=== PATIENT | female | born 1950 | race Caucasian/White ===

== ENCOUNTER 2022-01-27 09:59 | Observation (INO) ==
[2022-01-27 10:33] LABS: Basophils % 0.3 %; Eosinophils # 0.1 K/mcL (0.0-0.6); Eosinophils % 0.7 %; Hematocrit 38.9 % (35.3-44.9); Hemoglobin 12.6 g/dL (11.5-15.4); Immature Granulocytes % 0.5 % (0-4); Lymphocytes # 1.3 K/mcL (0.6-4.6); Lymphocytes % 13.9 %; Mean Corpuscular HGB Conc 32.4 g/dL (31.6-35.5); Mean Corpuscular Hemoglobin 28.1 pg (28.0-33.3); Mean Corpuscular Volume 86.6 fL (83.0-100.0); Mean Platelet Volume 10.7 fL (9.4-12.4); Monocytes # 0.7 K/mcL (0.0-1.3); Monocytes % 7.6 %; Neutrophils # 7.3 K/mcL (1.6-8.9); Platelet Count 176 K/mcL (140-400); Red Blood Count 4.49 M/mcL (3.82-4.97); Red Cell Distribution Width 13.9 % (11.5-14.5); White Blood Count 9.4 K/mcL (4.3-11.1)
[2022-01-27 10:47] LABS: Calcium 9.9 mg/dL (8.6-10.3); Potassium 3.6 mEq/L (3.5-5.1); Uric Acid 9.8 mg/dL (2.3-7.6)
[2022-01-27] MEDS ORDERED: 0.9 % Sodium Chloride 1,000 ML IVC ONE (11:19)
[2022-01-27 11:55] LABS: Amorphous Sediment,Urine Few per hpf (None-Few); Bacteria,Urine Few per hpf (None-Few); Bilirubin,Urine Negative (Negative); Blood,Urine Small (Negative); Clarity,Urine Turbid (Clear); Color,Urine Light-Yellow (Yellow); Glucose,Urine (UA) Normal (Normal); Granular Casts,Urine Many per lpf (None Seen); Ketones,Urine Negative (Negative); Leukocyte Esterase,Urine Moderate (Negative); Mucus,Urine Few per lpf (None-Few); Nitrite,Urine Negative (Negative); Protein,Urine 100 mg/dL (Neg-Trace); Renal Epithelial Cells,Urine Few per hpf (None-Few); Specific Gravity,Urine 1.021 (1.010-1.025); Squamous Epithelial Cell,Urine Moderate per hpf (None-Few); Transitional Epi Cells,Urine Few per hpf (None-Few); Urobilinogen,Urine Normal (Normal); WBC,Urine 15-30 per hpf (0-3)
[2022-01-27 13:27] LABS: Calcium 9.2 mg/dL (8.6-10.3); Potassium 3.3 mEq/L (3.5-5.1)
[2022-01-27] MEDS ORDERED: predniSONE 20 MG TABLET PO ONE (14:31)
[2022-01-27] MEDS ORDERED: Ondansetron 4 MG/2 ML VIAL IVP PRN (14:48)
[2022-01-27] MEDS ORDERED: Naloxone 0.4 MG/ML INJ IVP PRN (14:48)
[2022-01-27] MEDS ORDERED: 0.9 % Sodium Chloride 1,000 ML IVC SCH (15:00)
[2022-01-27] MEDS ORDERED: cefTRIAXone 1,000 MG in 0.9 % Sodium Chloride 10 ML IVP SCH (17:00)
[2022-01-27] MEDS: cloNIDine HCL 0.1 MG TABLET PO SCH (20:38)
[2022-01-27] MEDS: Acetaminophen 325 MG TABLET PO SCH (20:38)
[2022-01-28 06:16] LABS: Calcium 9.2 mg/dL (8.6-10.3); Potassium 3.6 mEq/L (3.5-5.1)
[2022-01-28] MEDS: Acetaminophen 325 MG TABLET PO SCH ×2 (09:17→20:50)
[2022-01-28] MEDS: Aspirin Enteric Coated 81 MG Tablet PO SCH (09:18)
[2022-01-28] MEDS: cloNIDine HCL 0.1 MG TABLET PO SCH ×2 (09:18→20:50)
[2022-01-28] MEDS: amLODIPine 5 MG TABLET PO SCH (09:18)
[2022-01-28] MEDS: Ringers Solution, Lactated 1,000 ML IVC SCH ×2 (12:21→22:33)
[2022-01-28] MEDS ORDERED: D5% in Water 1,000 ML IVC PRN (12:57)
[2022-01-28] MEDS ORDERED: *HR* Dextrose 50 % in Water (Syg) 50 ML SYRINGE IVP PRN (12:57)
[2022-01-28] MEDS ORDERED: Dextrose Gel 15 GM/37.5 ML TUBE PO PRN ×2 (12:57)
[2022-01-28] MEDS: Insulin LISPRO 300 UNITS/3 ML VIAL SUBQ SCH ×3 (13:16→20:50)
[2022-01-28] MEDS: *HR* Heparin 5,000 UNIT/ML VIAL SQ SCH (19:41)
[2022-01-29 02:00] LABS: Basophils % 0.4 %; Eosinophils # 0.1 K/mcL (0.0-0.6); Eosinophils % 0.8 %; Hematocrit 35.7 % (35.3-44.9); Hemoglobin 11.3 g/dL (11.5-15.4); Immature Granulocytes % 0.5 % (0-4); Lymphocytes # 1.7 K/mcL (0.6-4.6); Lymphocytes % 22.9 %; Mean Corpuscular HGB Conc 31.7 g/dL (31.6-35.5); Mean Corpuscular Volume 85.4 fL (83.0-100.0); Mean Platelet Volume 10.9 fL (9.4-12.4); Monocytes # 0.5 K/mcL (0.0-1.3); Platelet Count 150 K/mcL (140-400); Red Blood Count 4.18 M/mcL (3.82-4.97); Red Cell Distribution Width 13.8 % (11.5-14.5); Segmented Neutrophils % 68.4 %; White Blood Count 7.3 K/mcL (4.3-11.1)
[2022-01-29 02:24] LABS: Calcium 9.1 mg/dL (8.6-10.3); Magnesium 1.6 mg/dL (1.6-2.6); Potassium 3.4 mEq/L (3.5-5.1)
[2022-01-29 02:28] LABS: Thyroid Stimulating Hormone 3.777 mcIU/mL (0.340-5.600)
[2022-01-29] MEDS: *HR* Heparin 5,000 UNIT/ML VIAL SQ SCH ×2 (07:01→17:23)
[2022-01-29 08:42] LABS: Estimated Average Glucose 151 mg/dl; Hemoglobin A1C 6.9 %
[2022-01-29] MEDS: Insulin LISPRO 300 UNITS/3 ML VIAL SUBQ SCH ×4 (08:44→20:53)
[2022-01-29] MEDS: 0.9 % Sodium Chloride 1,000 ML IVC SCH ×2 (08:58→17:09)
[2022-01-29] MEDS: Aspirin Enteric Coated 81 MG Tablet PO SCH (08:58)
[2022-01-29] MEDS: cloNIDine HCL 0.1 MG TABLET PO SCH ×2 (08:58→20:43)
[2022-01-29] MEDS: amLODIPine 5 MG TABLET PO SCH (08:59)
[2022-01-29] MEDS: Acetaminophen 325 MG TABLET PO SCH ×2 (08:59→20:43)
[2022-01-29] MEDS ORDERED: Potassium Effervescent 25 MEQ TABLET.EFF PO ONE (16:47)
[2022-01-30 00:41] VITALS: TEMP 97.9
[2022-01-30 04:40] LABS: Basophils % 0.7 %; Eosinophils # 0.1 K/mcL (0.0-0.6); Eosinophils % 3.1 %; Hematocrit 36.3 % (35.3-44.9); Hemoglobin 11.4 g/dL (11.5-15.4); Immature Granulocytes % 0.7 % (0-4); Lymphocytes # 1.3 K/mcL (0.6-4.6); Lymphocytes % 31.5 %; Mean Corpuscular HGB Conc 31.4 g/dL (31.6-35.5); Mean Corpuscular Hemoglobin 27.1 pg (28.0-33.3); Mean Corpuscular Volume 86.4 fL (83.0-100.0); Mean Platelet Volume 10.9 fL (9.4-12.4); Monocytes # 0.4 K/mcL (0.0-1.3); Monocytes % 8.2 %; Neutrophils # 2.4 K/mcL (1.6-8.9); Platelet Count 156 K/mcL (140-400); Red Cell Distribution Width 13.9 % (11.5-14.5); Segmented Neutrophils % 55.8 %; White Blood Count 4.3 K/mcL (4.3-11.1)
[2022-01-30 04:53] LABS: Calcium 8.5 mg/dL (8.6-10.3); Magnesium 1.4 mg/dL (1.6-2.6); Potassium 3.8 mEq/L (3.5-5.1)
[2022-01-30] MEDS: *HR* Heparin 5,000 UNIT/ML VIAL SQ SCH (05:10)
[2022-01-30 07:23] VITALS: BP 145/84; PULSE 63; O2SAT 95
[2022-01-30] MEDS: Insulin LISPRO 300 UNITS/3 ML VIAL SUBQ SCH (07:35)
[2022-01-30] MEDS: Aspirin Enteric Coated 81 MG Tablet PO SCH (07:53)
[2022-01-30] MEDS: Acetaminophen 325 MG TABLET PO SCH (07:53)
[2022-01-30] MEDS: cloNIDine HCL 0.1 MG TABLET PO SCH (07:53)
[2022-01-30] MEDS: amLODIPine 5 MG TABLET PO SCH (07:53)
== END 2022-01-30 12:08 | disposition home or self-care (01) ==
LOC: EMEROOARM 09:59 → 4WAOSI 09:59 → SUATTDRO 16:30 → 4WAOSI 16:40
PROVIDERS: ADMIT Student in an Organized Health Care Education/Training Program; ATTEND Pharmacist